=== PATIENT | female | born 1985 | race Caucasian/White ===

== ENCOUNTER 2020-01-25 07:31 | Emergency (ER) | payer OTHER ==
[~2020-01-25] VITALS: Ht 157.5 cm; Wt 65.8 kg
[2020-01-25] MEDS ORDERED: FORTAMET500 MG PO (07:59)
[2020-01-25] MEDS ORDERED: GLIMEPIRIDE2 M1 PO (07:59)
[2020-01-25] MEDS ORDERED: GLIMEPIRIDE1 M1 PO (08:00)
== END 2020-01-25 10:59 | disposition home or self-care (01) ==
LOC: ER 07:31
DX: O20.8 Other hemorrhage in early pregnancy (principal)